=== PATIENT | male | born 1965 | race Caucasian/White ===

== ENCOUNTER → 2017-02-23 | Day surgery (SDC) | payer BC ==
[2017-02-17 15:42] VITALS: BMI 45.0
[~2017-02-23] VITALS: Ht 175.3 cm; Wt 140.0 kg
[~2017-02-23] MED LIST: ATOR10TA82 PO; FAMO20TA11 PO; FELO5TAB PO; IBUP-103 PO; INSDGI INJ; INSU100I2 INJ; LATA0.009 OP; LEVO125T5 PO; LIDOCAINE HCL 2% 2 ML VIAL (20MG/ML) ONE; LISI-786 PO; METF-384 PO; NAPR1TAB9 PO; PROPOFOL IV EMULSION 10 MG/ML 20 ML VIAL IV ONE; SODIUM CHLORIDE 0.9% 500ML 500 ML IV ONE
[2017-02-23 08:26] VITALS: Ht 175.3 cm; Wt 140.0 kg
[2017-02-23 08:31] VITALS: TEMP 36.7
--- NOTE | 2017-02-23 08:50 | Endo History and Physical ---
History & Physical Date of Service: Feb 23, 2017. Chief Complaint: SCREENING Referring Physician: DR CEDILLO History of Present Illness screening Past Surgical History Hx Cardiac Surgery: No Hx Internal Defibrillator: No Hx Pacemaker: No Hx Abdominal Surgery: No Hx of Implantable Prosthesis: No Hx Post-Op Nausea and Vomiting: No Hx Cancer Surgery: No Hx Thoracic Surgery: No Hx Orthopedic: No Hx Urinary Tract Surgery: No Family History None Social History Smoking Status: Never Smoker Hx Substance Use: No Hx Alcohol Use: No Allergies Coded Allergies: No Known Allergies (Unverified , 02/23/17) Current Medications Reported Home Medications Medications Dose Route/Sig Max Daily Dose Days Date Category Dose Instructions Pepcid (Famotidine) 20 Mg Tab 20 Mg PO BID 02/17/17 Reported Plendil (Felodipine) 5 Mg Tabcr 5 Mg PO HS 02/17/17 Reported Xalatan 0.005% Oph Beverly (Latanoprost) 0.005 % Beverly 1 Drops OP HS 90 02/17/17 Reported Lipitor (Atorvastatin Calcium) 10 Mg Tab 10 Mg PO HS 02/17/17 Reported Levothyroxine Sodium 125 Mcg Tab 1 Tab PO QAM 90 02/17/17 Reported Zestoretic (Lisinopril & Hydrochlorothiazi) 1 Tab Tab 1 Tab PO QAM 02/17/17 Reported 10/12.5 MG Humalog Kwikpen (Insulin Lispro (Human)) 100 Unit/Ml Inj INJ TIDM 02/17/17 Reported SLIDING SCALE Aleve (Naproxen) 220 Mg Tab 220 Mg PO PRN 02/17/17 Reported Advil (Ibuprofen) 200 Mg Tab 400 Mg PO PRN 02/17/17 Reported Lantus (Insulin Glargine) 100 Unit/Ml Inj 30 Units INJ HS 02/17/17 Reported Glucophage (Metformin Hcl) 1,000 Mg Tab 1,000 Mg PO BID 02/17/17 Reported Vital Signs Weight (Kilograms): 140.00 Height (Feet): 5 Height (Inches): 9 Date Time Temp Pulse Resp B/P (MAP) Pulse Ox O2 Delivery O2 Flow Rate FiO2 02/23/17 08:31 36.7 85 18 135/74 (94) 94 Room Air Assessment and Plan colonoscopy today
--- NOTE | 2017-02-23 09:37 | GI REPORT ---
Procedure Date: 02/23/2017 8:55 AM Procedure: Colonoscopy Indications: Screening for colorectal malignant neoplasm Medicines: Propofol per Anesthesia Complications: No immediate complications. Estimated blood loss: Minimal. Estimated Blood Loss: Estimated blood loss: none. Procedure: Pre-Anesthesia Assessment: - Prior to the procedure, a History and Physical was performed, and patient medications, allergies and sensitivities were reviewed. The patient's tolerance of previous anesthesia was reviewed. - The risks and benefits of the procedure and the sedation options and risks were discussed with the patient. All questions were answered and informed consent was obtained. - Patient identification and proposed procedure were verified prior to the procedure by the physician and the nurse. The procedure was verified in the pre-procedure area in the procedure room. - Mental Status Examination: alert and oriented. Airway Examination: normal oropharyngeal airway and neck mobility. Respiratory Examination: clear to auscultation. CV Examination: normal. Abdominal Examination: bowel sounds present, abdomen soft and non-tender, no masses or organomegaly noted. - ASA Grade Assessment: III - A patient with severe systemic disease. After I obtained informed consent, the scope was passed under direct vision. Throughout the procedure, the patient's blood pressure, pulse, and oxygen saturations were monitored continuously. The scope was introduced through the anus and advanced to the cecum, identified by appendiceal orifice and ileocecal valve. The colonoscopy was performed without difficulty. The patient tolerated the procedure well. The quality of the bowel preparation was good. Findings: The perianal and digital rectal examinations were normal. Pertinent negatives include normal sphincter tone and no palpable rectal lesions. A 4 mm polyp was found in the cecum. The polyp was sessile. The polyp was removed with a cold snare. Resection and retrieval were complete. Verification of patient identification for the specimen was done by the physician and nurse using the patient's name and date. Estimated blood loss was minimal. A medium-sized polypoid lesion was found in the cecum. The lesion was umbilicated. No bleeding was present. Biopsies were taken with a cold forceps for histology. Verification of patient identification for the specimen was done by the physician and nurse using the patient's name and date. Estimated blood loss was minimal. Area was unsuccessfully injected with 2 mL of a 1:10,000 solution of epinephrine for a lift polypectomy. A 8 mm polyp was found in the transverse colon. The polyp was sessile. The polyp was removed with a hot snare. Resection and retrieval were complete. Verification of patient identification for the specimen was done by the physician and nurse using the patient's name and date. Estimated blood loss: none. A 9 mm polyp was found in the descending colon. The polyp was sessile. The polyp was removed with a hot snare. Resection and retrieval were complete. Verification of patient identification for the specimen was done by the physician and nurse using the patient's name and date. Estimated blood loss was minimal. Two semi-pedunculated polyps were found in the sigmoid colon. The polyps were 7 to 8 mm in size. These polyps were removed with a hot snare. Resection and retrieval were complete. Verification of patient identification for the specimen was done by the physician and nurse using the patient's name and date. Estimated blood loss was minimal. The retroflexed view of the distal rectum and anal verge was normal and showed no anal or rectal abnormalities. Impression: - One 4 mm polyp in the cecum, removed with a cold snare. Resected and retrieved. - Rule out malignancy, polypoid lesion in the cecum. Biopsied. Treatment not successful. - One 8 mm polyp in the transverse colon, removed with a hot snare. Resected and retrieved. - One 9 mm polyp in the descending colon, removed with a hot snare. Resected and retrieved. - Two 7 to 8 mm polyps in the sigmoid colon, removed with a hot snare. Resected and retrieved. - The distal rectum and anal verge are normal on retroflexion view. Recommendation: - Await pathology results. - No aspirin, ibuprofen, naproxen, or other non-steroidal anti-inflammatory drugs for 7 days after polyp removal. - Repeat colonoscopy for surveillance based on pathology results. - Return to primary care physician as previously scheduled. - Discharge patient to home. Angeline Garcia D.O. Angeline Garcia DO 02/23/2017 9:36:54 AM This report has been signed electronically. Note Initiated On: 02/23/2017 8:55 AM I attest to the content of the Intraoperative Record and orders documented therein, exceptions below
--- NOTE | 2017-02-23 09:39 | Discharge Instructions ---
Endoscopy Patient Instructions Date / Procedure(s) Performed Feb 23, 2017. Colonoscopy Allergy Information Coded Allergies: No Known Allergies (Unverified , 02/23/17) Discharge Date / Findings Feb 23, 2017. multiple polyps; 1 large polyp in the cecum which did not lift with saline and not amenable to endoscopic removal. Medication Instructions Stopped Medication(s): METFORMIN ALEVE NO MORNING MEDS Restart Stopped Medication(s): OK to resume metformin and all meds aside from Aleve as above Avoid NSAIDs for 1 week Provider Instructions Activity Restrictions - No exercising or heavy lifting for 24 hours. - Do not drink alcohol the day of the procedure. - Do not drive a car or operate machinery until the day after the procedure. - Do not make any important decisions or sign important papers in 24 hours after the procedure. Following Day: - Return to full activity which may include returning to work/school. Diet Start your diet with liquids and light foods (jello, soup, juice, toast). Then eat your usual diet if not nauseated. Treatment For Common After Affects For mild abdominal pain, bloating, or excessive gas: - Rest - Eat lightly - Lie on right side Follow-Up Information Follow-up with DR CEDILLO as scheduled Anesthesia Information What You Should Know You have had a procedure that required some medicine to reduce anxiety and discomfort. This treatment is called moderate sedation. After receiving the treatment, you may be sleepy, but you will be able to breathe on your own. The effects of the treatment may last for several hours. Follow these instructions along with Activity/Diet recommendations noted above: * Do NOT do anything where dizziness or clumsiness would be dangerous. * Rest quietly at home today, then you can be up and about tomorrow. * Have a responsible person stay with you the rest of today. * You may have had an I.V. today. If so, you may take the dressing off later today. Recommendations Call your doctor if: * Trouble breathing * Continuous vomiting for more than 24 hours * Temperature above 101 degrees * Severe abdominal pain or bloating * Pain not relieved by pain medicine ordered * There is increased drainage or redness from any incision * A large amount of rectal bleeding greater than 2-3 tablespoons. (If you had a polyp/s removed or have hemorrhoids, a small amount of blood - from the rectum is to be expected.) * You have any unanswered questions or concerns. IN THE EVENT OF A SERIOUS EMERGENCY, GO TO THE NEAREST EMERGENCY ROOM Your discharge instructions were prepared by provider Angeline Garcia. Patient Instructions Signature Page Wisam Aranda Patient (or Guardian) Signature/Date: I have read and understand the instructions given to me by my caregivers. Caregiver/RN/Doctor Signature/Date: The above-named patient and/or guardian has received patient instructions on this date. + Original Patient Signature Page (only) stays with chart. Please make copy for patient.
--- NOTE | 2017-02-23 09:53 | Anesthesiology Progress Note ---
Anesthesia Post Op Note Date & Time Feb 23, 2017 at 09:53 Vital Signs Pain Intensity: 0 Vital Signs Past 12 Hours Date Time Temp Pulse Resp B/P (MAP) Pulse Ox O2 Delivery O2 Flow Rate FiO2 02/23/17 09:45 86 16 126/80 (95) 96 Room Air 02/23/17 09:30 80 16 115/69 (84) 97 Room Air 02/23/17 08:31 36.7 85 18 135/74 (94) 94 Room Air Notes Mental Status: alert / awake / arousable, participated in evaluation Pt Amnestic to Procedure: Yes Nausea / Vomiting: adequately controlled Pain: adequately controlled Airway Patency, RR, SpO2: stable & adequate BP & HR: stable & adequate Hydration State: stable & adequate Anesthetic Complications: no major complications apparent
[2017-02-23 10:00] VITALS: BP 130/81; PULSE 77; O2SAT 96
== END | disposition home or self-care (01) ==
LOC: C.GI 08:05
PROVIDERS: ATTEND Nurse Practitioner Family
DX: Z12.11 Encounter for screening for malignant neoplasm of colon (principal); D12.0 Benign neoplasm of cecum; D12.3 Benign neoplasm of transverse colon; D12.4 Benign neoplasm of descending colon; D12.5 Benign neoplasm of sigmoid colon; Z98.42 Cataract extraction status, left eye; G47.33 Obstructive sleep apnea (adult) (pediatric); I10 Essential (primary) hypertension; E78.5 Hyperlipidemia, unspecified; K21.9 Gastro-esophageal reflux disease without esophagitis; E11.9 Type 2 diabetes mellitus without complications; E03.9 Hypothyroidism, unspecified; E66.9 Obesity, unspecified; H40.9 Unspecified glaucoma